=== PATIENT | male | born 1960 | race Caucasian/White ===

== ENCOUNTER 2018-05-07 09:21 | Emergency (ER) | payer BC ==
[2018-05-07 09:33] VITALS: BP 158/90
--- NOTE | 2018-05-07 10:16 | EDM.PDOC ---
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 He reports yesterday at approximately 4pm he was grinding nails while working on building a deck when he suddenly experienced a foreign body sensation in his left eye. He states he thought he "got it out," but woke up this morning with increased irritation. He reports he normally has dry eyes, so they are easily irritated. Symptoms are localized to the left lower quadrant of the left eye. He reports mild tearing and irritation. He denies visual changes, headache, or fever/ chills. He has not had any previous eye diseases, injuries, or surgeries. He has a history of hypothyroidism for which he takes levothyroxine, but denies any other medical problems. Onset: Sudden Left Eye Pain Score (Numeric/FACES): 0 - Related Data Allergies Allergy/AdvReac Type Severity Reaction Status Date / Time No Known Allergies Allergy Verified 05/07/18 09:33 Home Meds: Home Meds . [No Known Home Meds] 05/07/18 [History] Past Medical History Endocrine/Metabolic History: Reports: Hypothyroidism - Past Surgical History HEENT Surgical History: Reports: Naso-Sinus Surgery, Tonsillectomy Social & Family History - Living Situation & Occupation Living situation: Reports: , with Spouse Occupation: Employed ED ROS GENERAL - Review of Systems Review Of Systems: ROS reveals no pertinent complaints other than HPI. Constitutional: Denies: Fever, Chills HEENT: Reports: Eye Discharge (mild clear tearing/discharge), Eye Pain, Glasses. Denies: Contact Lenses, Vision Change ED EXAM GENERAL W FULL EYE - Physical Exam Exam Limited By: No Limitations General Appearance: Alert, No Apparent Distress Eye Exam: Left Eye: Other (small, <1mm area of pigmentation at 3-o'clock, 1 mm lateral to the border of the left pupil. Does not appear to be a foreign body.) , Bilateral Eye: Conjunctival Injection (mild injection bilaterally), EOMI, PERRL Visual Acuity (R) 20/: 25 Visual Acuity (L) 20/: 25 With Correction: Yes Eyelids: Bilateral: Normal Appearance Conjunctiva & Sclera: Bilateral: Injected (mild; minimal tearing) Cornea Exam: Bilateral: Normal Appearance (normal appearance on gross and slit- lamp exam) Extraocular Movements: Bilateral: Intact Pupillary Size: Bilateral: 3 mm Pupillary Reaction: Bilateral: Brisk Anterior Chamber: Bilateral: Normal Appearance Head: Atraumatic ED EYE w/ Add Procedure - Eye Procedure Alcaine Drops Administered: Yes (left eye - resolved pain) Course - Vital Signs Last Recorded V/S: Last Vital Signs Temp 97.2 F 05/07/18 09:28 Pulse 80 05/07/18 09:28 Resp 16 05/07/18 09:28 BP 158/90 H 05/07/18 09:28 Pulse Ox 99 05/07/18 09:28 Departure - Departure Disposition: Home, Self-Care 01 Clinical Impression: Left eye pain - Discharge Information Referrals: PCP,Not In Area [Primary Care Provider] - Forms: ED Department Discharge Additional Instructions: the discomfort and irritation you have left eye should resolve over the next 12 to 24 hours. Visine or similar type eye drops as needed today and tomorrow, tylenol or ibuprofen if needed. Follow up with your regular eye Dr if not completely back to normal by Thursday as expected. <Gokul Lamas L - Last Filed: 05/07/18 16:29> ED HPI GENERAL MEDICAL PROBLEM - General Source of Information: Reports: RN Notes Reviewed ED ROS GENERAL - Review of Systems Review Of Systems: See Below Respiratory: Reports: No Symptoms Skin: Denies: Rash ED EXAM GENERAL W FULL EYE - Physical Exam Exam: See Below Neck: Supple Respiratory/Chest: No Respiratory Distress Skin Exam: Warm, Dry, Normal Color. No: No Rash Course - Re-Assessments/Exams Free Text/Narrative Re-Assessment/Exam: 05/07/18 16:27 eye examined with slit lamp, there is no foreign body visible, patient feels he likely got that washed out last evening but awakened with mild scratchiness, irritation L eye this morning and felt he had best get it checked out. No visible abrasion. Complete relief of discomfort with topical proparacaine drops. Departure - Departure Time of Disposition: 10:48 Condition: Fair
== END 2018-05-07 10:40 | disposition home or self-care (01) ==
LOC: JD.ED 09:21
DX: H57.12 Ocular pain, left eye (principal)
CPT/HCPCS: 99283

== ENCOUNTER 2018-08-13 12:07 | Emergency (ER) | payer BC ==
[2018-08-13 12:21] VITALS: BP 151/85
[2018-08-13] MEDS ORDERED: Lidocaine 1% 10 ML MDV INJECT ONE (12:36)
--- NOTE | 2018-08-13 12:46 | EDM.PDOC ---
ED HPI GENERAL MEDICAL PROBLEM - General Chief Complaint: Laceration Stated Complaint: LEFT INDEX FINGER LAC Time Seen by Provider: 08/13/18 12:22 - History of Present Illness INITIAL COMMENTS - FREE TEXT/NARRATIVE: 58-year-old male presents emergency room with laceration to his left index finger. Patient was cutting drywall slipped and got his finger he has a near longitudinal laceration from the tip of his finger that extends almost to the distal interphalangeal joint skinfolds this is fairly superficial with some gaping and he did go all the way through the nail plate. He has no numbness or tingling in the finger. His last tetanus shot was a couple years ago with a laceration. Left 2-Index finger Pain Score (Numeric/FACES): 2 - Related Data Allergies Allergy/AdvReac Type Severity Reaction Status Date / Time No Known Allergies Allergy Verified 05/07/18 09:33 Home Meds: Home Meds Levothyroxine 125 mcg PO DAILY 08/13/18 [History] Past Medical History Endocrine/Metabolic History: Reports: Hypothyroidism - Past Surgical History HEENT Surgical History: Reports: Naso-Sinus Surgery, Tonsillectomy Social & Family History - Tobacco Use Smoking Status *Q: Never Smoker - Caffeine Use Caffeine Use: Reports: Coffee, Tea - Recreational Drug Use Recreational Drug Use: No - Living Situation & Occupation Living situation: Reports: , with Spouse Occupation: Employed ED ROS GENERAL - Review of Systems Review Of Systems: See Below Constitutional: Reports: No Symptoms Respiratory: Reports: No Symptoms Cardiovascular: Reports: No Symptoms GI/Abdominal: Reports: No Symptoms Musculoskeletal: Reports: No Symptoms Neurological: Reports: Paresthesia ED EXAM, SKIN/RASH Exam: See Below Exam Limited By: No Limitations General Appearance: Alert, No Apparent Distress Respiratory/Chest: No Respiratory Distress, Lungs Clear, Normal Breath Sounds Cardiovascular: Normal Peripheral Pulses, Regular Rate, Rhythm, No Edema, No Murmur Extremities: Other (Examination of his left hand shows a nearly 2 cm laceration that goes from the tip of his finger over the dorsum of the nail plate involving the nail plate and into the skin proximal to the nail plate. This gapes with pressure in his bleeding somewhat. It is recommended that he have sutures with this including at least one stitch holding the nail plate together. The patient has intact tendon function as well as neurologic function of this digit capillary refill is normal.) Neurological: Alert, Oriented, Normal Cognition ED SKIN PROCEDURES - Laceration/Wound Repair Left Digit - 2nd (Index) Lac/Wound length In cm: 2 Appearance: Subcutaneous, Clean Distal NVT: Neuro & Vascular Intact, No Tendon Injury Anesthetic Type: Digital Local Anesthesia - Lidocaine (Xylocaine): 1% Plain Local Anesthetic Volume: 3cc Skin Prep: Saline Exploration/Debridement/Repair: Wound Explored, In a Bloodless Field, Explored to Base Closed with: Sutures Suture Size: 3-0 # of Sutures: 8 (2 stitches were placed through the nail plate to help approximate this) Suture Type: Nylon Drain Placement: No Sterile Dressing Applied: Nurse Tetanus Status Addressed: Yes (This is up-to-date) Complications: No - Joint Reduction Pre-Procedure NV Status: Normal Post-Procedure NV Status: Normal Course - Vital Signs Last Recorded V/S: Last Vital Signs Temp 36.4 C 08/13/18 12:21 Pulse 70 08/13/18 12:21 Resp 20 08/13/18 12:21 BP 151/85 H 08/13/18 12:21 Pulse Ox 99 08/13/18 12:21 - Orders/Labs/Meds Meds: Medications Discontinued Medications Generic Name Dose Route Start Last Admin Trade Name Vickq PRN Reason Stop Dose Admin Lidocaine HCl 10 ml 08/13/18 12:36 08/13/18 12:56 Xylocaine 1% INJECT 08/13/18 12:37 10 ml ONETIME ONE Administration Departure - Departure Time of Disposition: 13:22 Disposition: Home, Self-Care 01 Clinical Impression: Laceration of left index finger with damage to nail - Discharge Information Instructions: Laceration Care, Adult Referrals: PCP,Not In Area [Primary Care Provider] - Forms: ED Department Discharge Additional Instructions: Return to the emergency room with any questions or problems. Return with increased pain swelling or redness. Keep the area absolutely clean and dry for the next 48 hours after 48 hours she can let water gently roll over the area and dab dry no scrubbing no soaking. Suture removal should come in 12 days either get this done with your regular physician or return to the emergency room for this.
== END 2018-08-13 13:30 | disposition home or self-care (01) ==
LOC: JD.ED 12:07
DX: S61.211A Laceration without foreign body of left index finger without damage to nail, initial encounter (principal); W45.8XXA Other foreign body or object entering through skin, initial encounter
CPT/HCPCS: 12001; 99283-25

== ENCOUNTER 2024-07-05 12:01 | Emergency (ER) | payer BC ==
[2024-07-05 12:13] VITALS: BP 176/73
[2024-07-05] MEDS ORDERED: Lidocaine 1% 10 ML MDV INJECT ONE (12:32)
[2024-07-05 14:00] VITALS: PULSE 61
== END 2024-07-05 14:00 | disposition home or self-care (01) ==
LOC: JD.ED 12:01
DX: S61.211A Laceration without foreign body of left index finger without damage to nail, initial encounter (principal); E03.9 Hypothyroidism, unspecified; Z79.890 Hormone replacement therapy; W26.8XXA Contact with other sharp object(s), not elsewhere classified, initial encounter; Y99.0 Civilian activity done for income or pay; Y92.89 Other specified places as the place of occurrence of the external cause
CPT/HCPCS: 12001; 99282

== ENCOUNTER 2025-02-26 07:18 | Emergency (ER) | payer BC, MEDICARE, OTHER ==
[2025-02-26] MEDS: Acetaminophen/HYDROcodone 325-5 MG Tab PO ONE (08:24)
[2025-02-26 08:36] VITALS: BP 143/89; PULSE 55
== END 2025-02-26 08:43 | disposition home or self-care (01) ==
LOC: JD.ED 07:18
DX: M54.12 Radiculopathy, cervical region (principal); E03.9 Hypothyroidism, unspecified; Z79.890 Hormone replacement therapy
CPT/HCPCS: 99283; A9270; J7512